=== PATIENT | male | born 1995 | race Caucasian/White ===

== ENCOUNTER 2019-08-18 19:28 | Emergency (ER) | payer MEDICAID ==
[~2019-08-18] VITALS: Ht 193 cm; Wt 90.7 kg
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
[2019-08-18] MEDS ORDERED: ACETAMINOPHEN ES 500 MG TABLET ONE (19:49)
--- NOTE | 2019-08-18 19:54 | NUR ---
PT WALKED TO CT W/ DIRECTOR STAFFING
[2019-08-18] MEDS ORDERED: ACETAMINOPHEN 325 MG TABLET PO ONE (20:00)
--- NOTE | 2019-08-18 20:05 | NUR ---
PT BACK FROM CT
[2019-08-18 20:33] VITALS: BP 138/74
--- NOTE | 2019-08-18 20:33 | NUR ---
Patient discharged to home in stable condition. Written and verbal after care instructions given. Patient verbalizes understanding of instruction.
== END 2019-08-18 20:34 | disposition home or self-care (01) ==
LOC: ER 19:30
DX: S09.8XXA Other specified injuries of head, initial encounter (principal); M54.2 Cervicalgia; F17.200 Nicotine dependence, unspecified, uncomplicated; W50.1XXA Accidental kick by another person, initial encounter; Y93.71 Activity, boxing; Y92.89 Other specified places as the place of occurrence of the external cause; Y99.8 Other external cause status
CPT/HCPCS: 70450; 72125; 99284; L0172 ×2